=== PATIENT | female | born 1975 | race Caucasian/White ===

== ENCOUNTER 2017-09-14 16:42 | Emergency (ER) | payer SELFPAY ==
[2017-09-14] MEDS: HYDROcodone/APAP 5/325MG 1 TAB TABLET PO (18:42)
== END 2017-09-14 18:44 | disposition home or self-care (01) ==
LOC: ER 16:42
DX: S92.901A Unspecified fracture of right foot, initial encounter for closed fracture (principal); X58.XXXA Exposure to other specified factors, initial encounter; Y93.89 Activity, other specified; Y92.89 Other specified places as the place of occurrence of the external cause; Y99.8 Other external cause status
CPT/HCPCS: 29515; 73630; 99284-25